=== PATIENT | female | born 1985 | race Asian ===

== ENCOUNTER 2021-12-19 15:58 | Emergency (ER) | payer MEDICAID, OTHER ==
[~2021-12-19] VITALS: Ht 157.5 cm; Wt 64.0 kg
[2021-12-19] MEDS ORDERED: SODIUM CHLORIDE 0.9% 1,000 ML IV ONE (16:30)
[2021-12-19] MEDS ORDERED: ONDANSETRON HCL 4 MG/2 ML VIAL IV ONE (16:30)
[2021-12-19] MEDS ORDERED: MECLIZINE HCL 25 MG TAB PO ONE (16:30)
[2021-12-19 18:30] LABS: Basophils # (auto) 0.1 10 ^3/uL (0-0.2); Eosinophils # (auto) 0 10 ^3/uL (0-0.8); Hemoglobin 11.5 g/dL (12.2-16.2); Monocytes # (auto) 0.5 10 ^3/uL (0-1.3); Nucleated Red Blood Cells % 0.1 %
[2021-12-19 18:32] LABS: Basophils % (auto) 0.8 % (0.0-2.0); Hematocrit 39.3 % (36.0-46.0); Lymphocytes # (auto) 1.2 10 ^3/uL (0.4-5.4); Lymphocytes % (auto) 7.9 % (10.0-50.0); Mean Corpuscular Hemoglobin 21.2 pg (28.0-32.0); Mean Corpuscular Hgb Conc. 29.3 g/dL (32.0-36.0); Mean Corpuscular Volume 72.3 fL (80.0-100.0); Monocytes % (auto) 3.1 % (0.0-12.0); Neutrophils % (auto) 88.2 % (37.0-80.0); Red Blood Cells 5.43 10^6/uL (4.0-5.20); White Blood Cell 14.7 10^3/uL (4.4-10.8)
[2021-12-19 18:33] LABS: Red Cell Distribution Width 25.8 % (11.8-14.3)
[2021-12-19 18:50] LABS: Albumin 4.3 g/dL (3.4-5.0); BUN/Creatinine Ratio 16.4; Calcium 9.1 mg/dL (8.5-10.1); Potassium 3.7 mmol/L (3.5-5.1)
[2021-12-19 18:52] LABS: Bilirubin, Total 0.3 mg/dL (0.2-1.0); Total Protein 8.3 g/dL (6.4-8.2)
[2021-12-19] MEDS ORDERED: ONDA-144 PO (19:25)
[2021-12-19] MEDS ORDERED: MECL12.514 PO (19:25)
[2021-12-19 19:51] VITALS: BP 107/68
== END 2021-12-19 19:51 | disposition home or self-care (01) ==
LOC: ER 16:02
DX: H81.10 Benign paroxysmal vertigo, unspecified ear (principal)
CPT/HCPCS: 36415; 80053; 84702; 85025; 93005; 96361; 96374; 99285; J2405; J7030; J8597

== ENCOUNTER → 2024-02-24 | Outpatient (CLI) | payer MEDICAID ==
[~2024-02-24] MED LIST: MECL12.586 PO; ONDA-144 PO
== END | disposition home or self-care (01) ==
LOC: RT 10:29
PROVIDERS: ATTEND Internal Medicine Pulmonary Disease
DX: R06.00 Dyspnea, unspecified (principal)
CPT/HCPCS: 94060; 94727; 94729